=== PATIENT | male | born 1975 | race Hispanic/Latino ===

== ENCOUNTER 2022-07-19 16:53 | Inpatient (IN) | payer OTHER ==
[~2022-07-19] VITALS: Ht 180.3 cm; Wt 86.8 kg
[2022-07-19] MEDS ORDERED: ONDANSETRON 4MG INJ IVP ONE (17:30)
[2022-07-19 17:53] LABS: BASOPHILS % (AUTO) 0.3 % (0.0-5.0); EOSINOPHILS % (AUTO) 3.2 % (0.0-8.0); HEMATOCRIT 43.5 % (42-54); LYMPHOCYTES % (AUTO) 18.1 % (21.0-51.0); MEAN CORPUSCULAR HEMOGLOBIN 31.8 pg (27.0-33.0); MEAN CORPUSCULAR HGB CONC 34.3 g/dL (32.0-36.0); MEAN CORPUSCULAR VOLUME 92.8 fL (79-99); MONOCYTES % (AUTO) 8.3 % (3.0-13.0); NEUTROPHILS % (AUTO) 69.8 % (40.0-77.0); PLATELET COUNT (AUTO) 251 K/uL (130-400); RED BLOOD CELL COUNT(AUTO) 4.69 MIL/uL (4.50-6.20); RED CELL DISTRIBUTION WIDTH 12.2 % (11.0-15.5); WHITE BLOOD COUNT (AUTO) 6.5 K/uL (4.8-10.8)
[2022-07-19] MEDS ORDERED: MORPHINE 4 MG SYG IVP ONE (18:00)
[2022-07-19 18:02] LABS: CREATININE 1.1 mg/dL (0.5-1.5); POTASSIUM 4.1 mmol/L (3.5-5.1)
[2022-07-19 18:07] LABS: ALBUMIN 4.3 g/dL (3.5-5.0)
[2022-07-19] MEDS ORDERED: LACTULOSE 20 GM/30 ML UDCUP PO PRN (19:30)
[2022-07-19] MEDS ORDERED: 0.9%NACL 1000ML 1,000 ML IV SCH (19:30)
[2022-07-19] MEDS ORDERED: ONDANSETRON 4MG INJ IV PRN (19:30)
[2022-07-19] MEDS ORDERED: ACETAMINOPHEN 325 MG TAB PO PRN ×2 (19:30)
[2022-07-19] MEDS ORDERED: MORPHINE 2 MG SYG IV PRN (19:30)
[2022-07-19 19:43] LABS: INR 0.93 (0.85-1.15); PROTHROMBIN TIME 10.1 SEC (9.6-11.6)
[2022-07-19 19:44] LABS: PARTIAL THROMBOPLASTIN TIME 24.2 SEC (26.3-35.5)
[2022-07-19] MEDS ORDERED: IOHEXOL-350 75 ML VIAL IV ONE (19:48)
[2022-07-19] MEDS: FAMOTIDINE 20MG VIAL IV SCH (21:00)
[2022-07-19] MEDS ORDERED: ZOSYN 3.375GM +NS 50ML IVPB ONE (21:00)
[2022-07-19] MEDS ORDERED: SUCCINYLCHOLINE CHLORIDE 20 MG/ML 10 ML VIAL ONE (21:08)
[2022-07-19] MEDS ORDERED: LIDOCAINE PF 100MG/5ML (2%) SYRINGE 5ML ONE (21:08)
[2022-07-19] MEDS ORDERED: PROPOFOL 10 MG/ML 20ML VIAL IV ONE ×2 (21:09→23:33)
[2022-07-19] MEDS ORDERED: MIDAZOLAM HCL 1 MG/ML 2ML VIAL ONE (21:09)
[2022-07-19] MEDS ORDERED: ROCURONIUM 10MG/1ML SYR 10 MG/ML ML ONE ×3 (21:09→22:47)
[2022-07-19] MEDS ORDERED: FENTANYL CITRATE PF 50 MCG/1 ML 2ML VIAL ONE (21:10)
[2022-07-20] VITALS (28 sets, daily range): BP systolic 90–138; BP diastolic 53–92
[2022-07-20] MEDS ORDERED: BACITRACIN 28.4 GM OINT TP ONE (00:04)
[2022-07-20] MEDS ORDERED: GLYCOPYRROLATE 1 MG/5 ML SYRINGE ONE (00:05)
[2022-07-20] MEDS ORDERED: NEOSTIGMINE 5MG/5ML SYR IV ONE (00:05)
[2022-07-20] MEDS ORDERED: MEPERIDINE-PF 25 MG/ML SYG ONE ×3 (00:07→00:51)
[2022-07-20 00:35] LABS: APPEARANCE,URINE CLEAR (CLEAR); BILIRUBIN,URINE NEGATIVE (NEGATIVE); COLOR,URINE COLORLESS (YELLOW); GLUCOSE, URINE (UA) NEGATIVE (NEGATIVE); KETONES,URINE NEGATIVE (NEGATIVE); LEUKOCYTE ESTERASE ,URINE NEGATIVE Leu/uL (NEGATIVE); NITRATE,URINE NEGATIVE (NEGATIVE); OCCULT BLOOD,URINE LARGE (NEGATIVE); PH,URINE 5.5 (5.0-8.0); PROTEIN,URINE NEGATIVE (NEGATIVE); UROBILINOGEN,URINE 0.2 mg/dL (0.2-1.0)
[2022-07-20 00:39] LABS: MUCUS,URINE RARE LPF (None Seen)
[2022-07-20 00:52] LABS: AMPHET/METH SCREEN,URINE NEGATIVE (NEGATIVE); BARBITURATE SCREEN, URINE NEGATIVE (NEGATIVE); BENZODIAZEPINES SCREEN,URINE NEGATIVE (NEGATIVE); CANNABINOID SCREEN,URINE NEGATIVE (NEGATIVE); COCAINE SCREEN,URINE POSITIVE (NEGATIVE); OPIATE SCREEN,URINE NEGATIVE (NEGATIVE); PHENCYCLIDINE SCREEN,URINE NEGATIVE (NEGATIVE)
[2022-07-20] MEDS ORDERED: 0.9%NACL 50ML IV SCH (05:00)
[2022-07-20 05:14] LABS: HEMATOCRIT 39.2 % (42-54); MEAN CORPUSCULAR HEMOGLOBIN 31.2 pg (27.0-33.0); MEAN CORPUSCULAR HGB CONC 33.2 g/dL (32.0-36.0); RED BLOOD CELL COUNT(AUTO) 4.17 MIL/uL (4.50-6.20); RED CELL DISTRIBUTION WIDTH 12.2 % (11.0-15.5); WHITE BLOOD COUNT (AUTO) 11.1 K/uL (4.8-10.8)
[2022-07-20 05:33] LABS: POTASSIUM 4.2 mmol/L (3.5-5.1)
[2022-07-20] MEDS: MEPERIDINE-PF 75 MG/ML SYG IVP PRN ×3 (06:03→21:18)
[2022-07-20] MEDS: ZOSYN 3.375GM +NS 50ML IVPB SCH ×3 (06:04→21:08)
[2022-07-20] MEDS: FAMOTIDINE 20MG VIAL IV SCH ×2 (09:57→21:08)
[2022-07-20] MEDS: ACETAMINOPHEN WITH CODEINE 1 TAB TAB PO PRN (09:58)
[2022-07-20] MEDS: LACTATED RINGERS 1000ML 1,000 ML IV SCH ×2 (09:59→21:19)
[2022-07-20] MEDS: OXYBUTYNIN 5 MG TAB.SR.24H PO PRN ×2 (10:00→16:36)
[2022-07-20] MEDS: ONDANSETRON 4MG INJ IVP PRN (13:24)
[2022-07-20] MEDS ORDERED: PHARMACY COMMUNICATION MISC PRN (17:30)
[2022-07-20] MEDS ORDERED: LORAZEPAM 2 MG/ML 1 ML VIAL IVP PRN (17:30)
[2022-07-20] MEDS ORDERED: CHLORDIAZEPOXIDE HCL 25 MG CAP PO PRN (17:30)
[2022-07-21 04:45] VITALS: BP 98/58
[2022-07-21] MEDS: ZOSYN 3.375GM +NS 50ML IVPB SCH ×3 (04:50→20:39)
[2022-07-21 07:57] VITALS: BP 104/55
[2022-07-21] MEDS: LACTATED RINGERS 1000ML 1,000 ML IV SCH (08:23)
[2022-07-21] MEDS: FOLIC ACID 1 MG TABLET PO SCH (08:24)
[2022-07-21] MEDS: MULTIVITAMIN TABLET PO SCH (08:24)
[2022-07-21] MEDS: FAMOTIDINE 20MG VIAL IV SCH ×2 (08:24→20:39)
[2022-07-21] MEDS: ONDANSETRON 4MG INJ IVP PRN (08:26)
[2022-07-21] MEDS: MEPERIDINE-PF 75 MG/ML SYG IVP PRN (08:32)
[2022-07-21] MEDS: OXYBUTYNIN 5 MG TAB.SR.24H PO PRN ×2 (08:34→16:14)
[2022-07-21] MEDS ORDERED: POTASSIUM CHLORIDE 20MEQ/100ML 100 ML IV PRN (10:30)
[2022-07-21] MEDS ORDERED: MAGNESIUM 2GM PREMIX 50ML 50 ML IV PRN (10:30)
[2022-07-21] MEDS ORDERED: LIDOCAINE HCL-MPF 1% 2ML VIAL IV PRN (10:30)
[2022-07-21] MEDS ORDERED: KCL 20 MEQ ERTAB PO PRN (10:30)
[2022-07-21] MEDS ORDERED: POTASSIUM CHLORIDE 10% ELIXIR 20 MEQ/15 ML UDCUP PO PRN (10:30)
[2022-07-21 10:51] VITALS: BP 93/59
[2022-07-21 10:52] LABS: BASOPHILS % (AUTO) 0.1 % (0.0-5.0); EOSINOPHILS % (AUTO) 0.5 % (0.0-8.0); HEMATOCRIT 33.3 % (42-54); LYMPHOCYTES % (AUTO) 11.6 % (21.0-51.0); MEAN CORPUSCULAR HGB CONC 33.3 g/dL (32.0-36.0); MONOCYTES % (AUTO) 8.2 % (3.0-13.0); NEUTROPHILS % (AUTO) 79.3 % (40.0-77.0); PLATELET COUNT (AUTO) 167 K/uL (130-400); RED BLOOD CELL COUNT(AUTO) 3.47 MIL/uL (4.50-6.20); RED CELL DISTRIBUTION WIDTH 12.1 % (11.0-15.5); WHITE BLOOD COUNT (AUTO) 8.8 K/uL (4.8-10.8)
[2022-07-21 11:00] LABS: CARBON DIOXIDE 33 mmol/L (21-32); CHLORIDE 102 mmol/L (101-111); GLOMERULAR FILTR. RATE CALC 94 mL/min (>90); GLUCOSE,RANDOM 105 mg/dL (70-105); POTASSIUM 3.6 mmol/L (3.5-5.1); SODIUM SERUM 136 mmol/L (136-145); UREA NITROGEN, BLOOD 6 mg/dL (7-18)
[2022-07-21 11:05] LABS: TOTAL PROTEIN, SERUM 6.4 g/dL (6.0-8.3)
[2022-07-21 11:06] LABS: CRP QUANTITATIVE < 2.00 mg/L (0.00-9.0)
[2022-07-21 12:24] LABS: ERYTHROCYTE SEDIMENTATION RATE 23 MM/HR (0-15)
[2022-07-21] MEDS: ACETAMINOPHEN WITH CODEINE 1 TAB TAB PO PRN (16:10)
[2022-07-21 16:18] VITALS: BP 105/57
[2022-07-21 20:00] VITALS: BP 110/68
[2022-07-22] VITALS: BP 107/52
[2022-07-22 04:00] VITALS: BP 112/57
[2022-07-22] MEDS: ZOSYN 3.375GM +NS 50ML IVPB SCH ×3 (05:17→21:03)
[2022-07-22 08:13] VITALS: BP 109/59
[2022-07-22] MEDS: FAMOTIDINE 20MG VIAL IV SCH ×2 (09:02→21:03)
[2022-07-22] MEDS: FOLIC ACID 1 MG TABLET PO SCH (09:02)
[2022-07-22] MEDS: MULTIVITAMIN TABLET PO SCH (09:02)
[2022-07-22] MEDS ORDERED: IBUP-2070 PO (12:03)
[2022-07-22 12:22] VITALS: BP 107/63
[2022-07-22] MEDS ORDERED: DOXY100T2 PO (13:28)
[2022-07-22] MEDS: NEOMY SULF/BACITRA/POLYMYXIN B 1 EACH PACKET TP SCH (15:10)
[2022-07-22] MEDS: ACETAMINOPHEN WITH CODEINE 1 TAB TAB PO PRN ×2 (16:28→21:12)
[2022-07-22 16:42] VITALS: BP 112/64
[2022-07-22 20:00] VITALS: BP 112/62
[2022-07-22] MEDS: FERROUS SULFATE 325 MG TABLET.DR PO SCH (21:02)
[2022-07-23] VITALS: BP 106/66
[2022-07-23 04:00] VITALS: BP 121/70
[2022-07-23] MEDS: ZOSYN 3.375GM +NS 50ML IVPB SCH ×2 (04:25→12:35)
[2022-07-23 08:00] VITALS: BP 124/66
[2022-07-23] MEDS: FERROUS SULFATE 325 MG TABLET.DR PO SCH ×3 (08:31→21:37)
[2022-07-23] MEDS: FAMOTIDINE 20MG VIAL IV SCH ×2 (08:31→21:37)
[2022-07-23] MEDS: MULTIVITAMIN TABLET PO SCH (08:31)
[2022-07-23] MEDS: FOLIC ACID 1 MG TABLET PO SCH (08:31)
[2022-07-23 11:45] VITALS: BP 142/79
[2022-07-23] MEDS: NEOMY SULF/BACITRA/POLYMYXIN B 1 EACH PACKET TP SCH (12:35)
[2022-07-23] MEDS: ACETAMINOPHEN WITH CODEINE 1 TAB TAB PO PRN (13:09)
[2022-07-23 16:00] VITALS: BP 132/90
[2022-07-23 17:58] LABS: BASOPHILS % (AUTO) 0.2 % (0.0-5.0); EOSINOPHILS % (AUTO) 2.2 % (0.0-8.0); HEMATOCRIT 35.9 % (42-54); LYMPHOCYTES % (AUTO) 17.7 % (21.0-51.0); MEAN CORPUSCULAR HEMOGLOBIN 31.6 pg (27.0-33.0); MEAN CORPUSCULAR HGB CONC 33.4 g/dL (32.0-36.0); MEAN CORPUSCULAR VOLUME 94.5 fL (79-99); MONOCYTES % (AUTO) 10.3 % (3.0-13.0); NEUTROPHILS % (AUTO) 69.3 % (40.0-77.0); PLATELET COUNT (AUTO) 233 K/uL (130-400); RED CELL DISTRIBUTION WIDTH 11.7 % (11.0-15.5); WHITE BLOOD COUNT (AUTO) 6.5 K/uL (4.8-10.8)
[2022-07-23] MEDS ORDERED: CEPH250C2 PO (19:49)
[2022-07-23] MEDS ORDERED: FERR500P12 MC (19:51)
[2022-07-23] MEDS ORDERED: VITA1CAP PO (19:58)
[2022-07-23] MEDS ORDERED: [UNRECOGNIZED DRUG - CODE] TP (21:46)
== END 2022-07-23 22:30 | disposition home or self-care (01) | DRG 909 ==
LOC: EDH 16:53 → EDHIP 16:54 → 4AH 07-20 01:03
PROVIDERS: ADMIT Hospitalist; ATTEND Hospitalist
PROC: 0VTTXZZ Resection of Prepuce, External Approach (ICD-10-PCS; principal; 2022-07-20)
PROC: 0TQDXZZ Repair Urethra, External Approach (ICD-10-PCS; 2022-07-20)
DX: S39.840A Fracture of corpus cavernosum penis, initial encounter (principal); D72.829 Elevated white blood cell count, unspecified; E11.9 Type 2 diabetes mellitus without complications; F10.10 Alcohol abuse, uncomplicated; I10 Essential (primary) hypertension; R33.9 Retention of urine, unspecified; D64.9 Anemia, unspecified; X58.XXXA Exposure to other specified factors, initial encounter; Y93.89 Activity, other specified; Y92.89 Other specified places as the place of occurrence of the external cause; Y99.8 Other external cause status
CPT/HCPCS: 36415; 71045; 74176; 74177; 76870; 80048; 80053; 80305; 81001; 82040; 83735; 84145; 84155; 85025; 85027; 85610; 85651; 85730; 86140; 93005; G0378; J0330; J2001; J2175; J2250; J2270; J2405; J2543; J2704; J2710; J3010; J3490; Q9967